=== PATIENT | female | born 1950 | race African-American/Black ===

== ENCOUNTER 2020-05-09 22:46 | Inpatient (IN) | payer MEDICARE, MEDICAID ==
[~2020-05-09] VITALS: Ht 167.6 cm; Wt 36.2 kg
[2020-05-09] MEDS: Albuterol/Ipratropium 3ml neb HHN SCH ×4 (01:01→23:45)
[2020-05-09 22:50] VITALS: BP 129/68
--- NOTE | 2020-05-09 22:50 | NUR ---
ED Nurse Note: pt biba from home CO SOB x 30 minutes. Pt aao x 4, ambulates with steady gait. Pt VSS, RT at bedside for bipap placement. ERMD at bedside. Awaiting further orders.
[2020-05-09] MEDS ORDERED: Nitroglycerin 50mg/250ml btl 250 ML IV SCH (23:00)
--- NOTE | 2020-05-09 23:14 | Diagnostic Imaging Report ---
EXAM: XR Chest, 1 View CLINICAL HISTORY: SOB TECHNIQUE: Frontal view of the chest. COMPARISON: None. FINDINGS: Lungs: The lungs are well aerated. Pleural space: Unremarkable. No pneumothorax. Heart: Cardiomediastinal silhouette unremarkable. Mediastinum: See above. Bones/joints: Osteopenia. Dextro scoliosis of the thoracic spine. Soft tissues: Soft tissues are unremarkable. Vasculature: Atherosclerotic disease of the aortic knob. IMPRESSION: 1. No active disease. 2. Osteopenia.
--- NOTE | 2020-05-09 23:20 | NUR ---
ED Nurse Note: all blood work sent to labs
--- NOTE | 2020-05-09 23:24 | NUR ---
ED Nurse Note: Per ERMD, pt weened from Bipap. Per RT, pt now on venturi mask 4L with 30% FiO2. Pt tolerating well. Spo2 99%. Will continue to monitor.
--- NOTE | 2020-05-09 23:34 | Emergency Room Report ---
History of Present Illness General Chief Complaint: Dyspnea/Respdistress Source: EMS Present Illness HPI 69-year-old female with history of CHF, COPD, spina bifida here in respiratory distress. Paramedics arrived to the patient's home patient was tripoding on the ground in severe respiratory distress. According the paramedics the family and the patient are very poor historians and know nothing else of the patient's past medical history. They said the patient's symptoms started tonight and were not able to give much other history. Paramedics placed the patient on CPAP with a nebulizer treatment and patient says that she feels slightly better but is still in respiratory distress. Says that the shortness of breath started tonight. No fevers, chills, chest pain, palpitations, cough, back pain , abdominal pain, nausea, vomiting, diarrhea, dysuria. 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 Patient History Now: No Nursing Documentation-[facility] Past Medical History: No History, Except For Hx Asthma: Yes Review of Systems All Other Systems: negative except mentioned in HPI Physical Exam Vital Signs Date Time Temp Pulse Resp B/P (MAP) Pulse Ox O2 Delivery O2 Flow Rate FiO2 05/09/20 22:49 98.6 116 30 191/115 (140) 100 Bi-pap 05/09/20 23:24 30 Sp02 EP Interpretation: reviewed, normal General Appearance: alert, GCS 15, non-toxic, severe distress Head: normocephalic, atraumatic Eyes: bilateral eye normal inspection, bilateral eye PERRL ENT: hearing grossly normal, normal pharynx, no angioedema, normal voice Neck: full range of motion, supple/symm/no masses Respiratory: chest non-tender, accessory muscle use, rales, other - In severe respiratory distress. Tachypneic. Use of accessory muscles. On CPAP. Rales in all lung pozo Cardiovascular #1: regular rate, rhythm, no edema Cardiovascular #2: 2+ carotid (R), 2+ carotid (L), 2+ radial (R), 2+ radial (L) , 2+ dorsalis pedis (R), 2+ dorsalis pedis (L) Gastrointestinal: normal bowel sounds, non tender, soft, non-distended, no guarding, no rebound Rectal: deferred Genitourinary: normal inspection, no CVA tenderness Musculoskeletal: back normal, normal range of motion, calf tenderness, gait/ station normal, non-tender Neurologic: alert, motor strength/tone normal, oriented x3, sensory intact, responsive, speech normal Psychiatric: judgement/insight normal, memory normal, mood/affect normal, no suicidal/homicidal ideation Reflexes: 3+ bicep (R), 3+ bicep (L), 3+ tricep (R), 3+ tricep (L), 3+ knee (R) , 3+ knee (L) Lymphatic: no adenopathy Medical Decision Making Diagnostic Impression: Primary Impression: Respiratory distress Additional Impressions: Dyspnea COPD exacerbation ER Course EKG: EKG:, no ischemia, intervals WNL. No ectopy. Tachycardic 120 bpm, normal rhythm Rhythm strip: patient monitored for arrhythmias - no malignant dysrhythmias, runs of PVCs, nor pauses noted Laboratory Tests Test 05/09/20 22:52 05/09/20 22:55 Arterial Blood pH 7.353 (7.350-7.450) Arterial Blood Partial Pressure CO2 50.0 mmHg (35.0-45.0) H Arterial Blood Partial Pressure O2 124.0 mmHg (75.0-100.0) H Arterial Blood HCO3 27.2 mmol/L (22.0-26.0) H Arterial Blood Oxygen Saturation 97.7 % (95-100) Arterial Blood Base Excess 0.9 (-2-2) Barrett Test Positive White Blood Count 4.6 K/UL (4.8-10.8) L Red Blood Count 4.48 M/UL (4.20-5.40) Hemoglobin 15.2 G/DL (12.0-16.0) Hematocrit 44.6 % (37.0-47.0) Mean Corpuscular Volume 100 FL (80-99) H Mean Corpuscular Hemoglobin 33.9 PG (27.0-31.0) H Mean Corpuscular Hemoglobin Concent 34.0 G/DL (32.0-36.0) Red Cell Distribution Width 13.0 % (11.6-14.8) Platelet Count 209 K/UL (150-450) Mean Platelet Volume 6.7 FL (6.5-10.1) Neutrophils (%) (Auto) 47.1 % (45.0-75.0) Lymphocytes (%) (Auto) 29.8 % (20.0-45.0) Monocytes (%) (Auto) 12.2 % (1.0-10.0) H Eosinophils (%) (Auto) 6.6 % (0.0-3.0) H Basophils (%) (Auto) 4.4 % (0.0-2.0) H Sodium Level 142 MMOL/L (136-145) Potassium Level 3.9 MMOL/L (3.5-5.1) Chloride Level 102 MMOL/L (98-107) Carbon Dioxide Level 29 MMOL/L (21-32) Anion Gap 11 mmol/L (5-15) Blood Urea Nitrogen 12 mg/dL (7-18) Creatinine 0.8 MG/DL (0.55-1.30) Estimated Glomerular Filtration Rate > 60 mL/min (>60) Glucose Level 98 MG/DL (74-106) Calcium Level 10.1 MG/DL (8.5-10.1) Total Bilirubin 0.3 MG/DL (0.2-1.0) Aspartate Amino Transferase (AST) 31 U/L (15-37) Alanine Aminotransferase (ALT) 23 U/L (12-78) Alkaline Phosphatase 57 U/L (46-116) Troponin I 0.002 ng/mL (0.000-0.056) Pro-B-Type Natriuretic Peptide 76 pg/mL (0-125) Total Protein 9.2 G/DL (6.4-8.2) H Albumin 4.3 G/DL (3.4-5.0) Globulin 4.9 g/dL Albumin/Globulin Ratio 0.9 (1.0-2.7) L Chest x-ray: No infiltrate/effusion. Mediastinum within normal limits Total critical care time: Approximately 45 minutes Due to a high probability of clinically significant, life threatening deterioration, the patient required the highest level of preparedness to intervene emergently and I personally spent this critical care time directly and personally managing the patient. This critical care time included obtaining a history, examining the patient, pulse oximetry, ordering and reviewing studies , ordering treatments, evaluating response to treatment and updating management plan as needed, frequent reassessment and discussion with other providers as well as arranging for ultimate disposition. This critical to care time was performed to assess and manage the high probability of life-threatening deterioration that could result in multiorgan failure. This critical care time is separate from the separately billable procedures and treating other patients. 69-year-old female with history of spina bifida, COPD, CHF here in respiratory distress. Patient had large amount of rales and wheezing on examination. She was immediately placed on BiPAP on arrival to the emergency department and said that she felt much improved. She had inline nebulizers ongoing, after 1 hour lungs sounded much improved. ABG showed mild CO2 retention, CO2 50. No evidence of respiratory acidosis. Labs largely unremarkable. Negative troponin , negative BNP, normal EKG. Chest x-ray normal. Likely COPD exacerbation. Patient was able to be weaned off of the BiPAP and was doing well on a Venturi mask with DuoNeb. Patient's vital signs remained normal throughout her stay in the emergency department. She had received Solu-Medrol, several hour-long DuoNeb's, Rocephin. She was observed for another several hours on a 4 L Venturi mask and said that she felt much improved. Admitted to telemetry in stable condition. Last Vital Signs Date Time Temp Pulse Resp B/P (MAP) Pulse Ox O2 Delivery O2 Flow Rate FiO2 05/09/20 23:24 92 28 100 30 05/09/20 22:49 98.6 191/115 (140) Bi-pap Scripts Unable to Obtain Active Prescriptions or Reported Meds Referrals: NON PHYSICIAN (PCP) Panfilo Delgado M.D. May 09, 2020 23:34
[2020-05-09 23:47] LABS: BASOPHILS % (AUTO) 4.4 % (0.0-2.0); EOSINOPHILS % (AUTO) 6.6 % (0.0-3.0); HEMATOCRIT 44.6 % (37.0-47.0); HEMOGLOBIN 15.2 G/DL (12.0-16.0); LYMPHOCYTES % (AUTO) 29.8 % (20.0-45.0); MEAN CORPUSCULAR VOLUME 100 FL (80-99); MONOCYTES % (AUTO) 12.2 % (1.0-10.0); NEUTROPHILS % (AUTO) 47.1 % (45.0-75.0); PLATELET COUNT 209 K/UL (150-450); RED BLOOD COUNT 4.48 M/UL (4.20-5.40); WHITE BLOOD COUNT 4.6 K/UL (4.8-10.8)
[2020-05-09 23:56] LABS: ANION GAP 11 mmol/L (5-15); BLOOD UREA NITROGEN 12 mg/dL (7-18); CALCIUM 10.1 MG/DL (8.5-10.1); CARBON DIOXIDE 29 MMOL/L (21-32); CHLORIDE 102 MMOL/L (98-107); CREATININE 0.8 MG/DL (0.55-1.30); POTASSIUM 3.9 MMOL/L (3.5-5.1); SODIUM 142 MMOL/L (136-145)
[2020-05-10] VITALS (8 sets, daily range): BP systolic 120–140; BP diastolic 74–94
[2020-05-10 00:01] LABS: ALANINE AMINOTRANSFERASE 23 U/L (12-78); ALBUMIN 4.3 G/DL (3.4-5.0); ALBUMIN/GLOBULIN RATIO 0.9 (1.0-2.7); ALKALINE PHOSPHATASE 57 U/L (46-116); ASPARTATE AMINO TRANSFERASE 31 U/L (15-37); BILIRUBIN,TOTAL 0.3 MG/DL (0.2-1.0)
[2020-05-10] MEDS: Albuterol/Ipratropium 3ml neb HHN SCH ×6 (00:15→23:16)
--- NOTE | 2020-05-10 00:31 | NUR ---
ED Nurse Note: all medications administered, pt tolerated well no ss of distress noted. will continue to monitor.
[2020-05-10] MEDS ORDERED: cefTRIAXone 1 GM in NS 55 ML IVPB ONE (00:45)
[2020-05-10] MEDS ORDERED: Solu-MEDROL 125mg Inj IVP ONE (00:45)
--- NOTE | 2020-05-10 02:15 | NUR ---
ED Nurse Note: Pt resting in bed, VSS no ss of distress noted. will continue to monitor.
[2020-05-10] MEDS ORDERED: Ketorolac 30mg Inj IV ONE (02:45)
--- NOTE | 2020-05-10 04:01 | NUR ---
ED Nurse Note: Pt resting in bed, VSS no ss of distress noted. will continue to monitor.
[2020-05-10] MEDS ORDERED: Morphine Sulfate 4mg/ml Inj (IV USE ONLY) IVP ONE (04:30)
--- NOTE | 2020-05-10 06:06 | NUR ---
ED Nurse Note: Report given to MARLENE Crowley on telemetry unit.
--- NOTE | 2020-05-10 06:20 | NUR ---
ED Nurse Note: pt resting in bed, VSS no ss of distress noted. will continue to monitor.
--- NOTE | 2020-05-10 06:55 | NUR ---
ER DISCHARGE NOTE: Patient is cleared to be discharged to Telemetry unit per ERMD, pt is aox4, 99% on 4L venturi mask, with stable vital signs. pt was able to verbalize understanding. pt took all belongings. Pt transported to telemetry unit with 1 RN and 1PCA on monitor. Report given to MARLENE Crowley on telemetry unit
--- NOTE | 2020-05-10 07:00 | NUR ---
NURSE NOTES: Patient received from Betzaida ROSARIO. Patient in stable condition. Brought in by fatou and patient was able to ambulate to bed. personnel monitor placed for the patient. Hospital gown provided. Vital signs stable. Bed low and locked. Call light and bedside table within reach. WIll continue and endorse plan of care to incoming shift.
--- NOTE | 2020-05-10 07:38 | NUR ---
NURSE HAND-OFF REPORT: Important Events on Shift:[Admission] Patient Status: [Stable] Diet: [awaiting] Pending Orders: [Admission Orders] Pending Results/Labs:[] Pending MD notification:[] Latest Vital Signs: Temperature 98.6 , Pulse 92 , B/P 125 /94 , Respiratory Rate 16 , O2 SAT 100 , Venturi Mask, O2 Flow Rate 4.0 . Vital Sign Comment: [] EKG Rhythm: Sinus Rhythm Rhythm change?: MD Notified?: - MD Response: Latest Flanagan Fall Score: Fall Risk: Safety Measures: Call light , Bed Alarm , Side Rails , Bed position . Fall Precautions: Report given to [Betzaida ROSARIO].
[2020-05-10] MEDS ORDERED: Zolpidem 5mg tab ORAL PRN (08:45)
--- NOTE | 2020-05-10 10:23 | NUR ---
NURSES NOTE: Received report from MARLENE Mendes. Pt is A/O x 4 and verbally responsive. Pt is on ventri mask 4L with 30% and SATing @95%. Pt has a slight no productive cough. Pt states she has no pain. No SOB or acute distress noted. Pt in bed watching TV and eating breakfast. Bed in lowest position and shown the call light. Pt asked to help remove her braces from her LE and placed on side table. Contacted Dr. Melvi Arnold for admitting orders and awaiting for a callback. Will continue to monitor.
--- NOTE | 2020-05-10 11:38 | NUR ---
CASE MANAGEMENT: INITIAL REVIEW 69YR OLD FEMALE FROM HOME CC:DYSPNEA/RESPIRATORY DISTRESS; SAT TO 90% ON RA; PATIENT FOUND HUNCHED OVER ON FLOOR BY FAMILY SI:RESPIRATORY DISTRESS . DYSPNEA . COPD EXACERBATION . ACUTE CORONARY DISEASE 98.6 116 30 191/115 100% ON BIPAP WBC 4.6 COVID-19 NEGATIVE ABG: pCO2 50 pO2 124 HCO3 27.2 IS:IV NITROGLYCERIN X1 ALBUTEROL HHN Q15MIN IV LASIX X1 IV SOLU-MEDROL 125MG X1 IV ROCEPHIN X1 IV TORADOL X1 IV MORPHINE SULFATE X1 CHEST X-RAY- No active disease. Osteopenia. \: [facility]E [facility]G UN[facility] DCP: HOME WHEN STABLE PLAN: Cont breathing treatments Cont IV abx Cont solumedrol Cont oxygen therapy abg in am CASE MANAGEMENT: REVIEW 05/10/20 SI:RESPIRATORY DISTRESS . DYSPNEA . COPD EXACERBATION . ACUTE CORONARY DISEASE 97.7 103 18 129/91 99% ON VENTURI MASK 4L NO LABS FOR TODAY IS:IV SOUL-MEDROL Q6HR IV ROCEPHIN QD TYLENOL PO Q4HR/PRN ALBUTEROL HHN Q4HR \: 3E MED SURG UNIT DCP: HOME WHEN STABLE PLAN: Cont breathing treatments Cont IV abx Cont solumedrol Cont oxygen therapy ABG in am pt eval and therapy recommendation
[2020-05-10] MEDS: Solu-MEDROL 40mg Inj IVP SCH ×2 (12:05→17:22)
[2020-05-10] MEDS ORDERED: Solu-MEDROL 125mg Inj IVP SCH (12:30)
--- NOTE | 2020-05-10 12:37 | History & Physical ---
History and Physical History & Physicial dictated [id number] Patrice Arnold MD May 10, 2020 12:37
[2020-05-10] MEDS ORDERED: Albuterol/Ipratropium 3ml neb HHN SCH (13:00)
[2020-05-10] MEDS: Morphine Sulfate 2mg/ml Inj(IV/IM USE ONLY) IVP PRN ×2 (14:21→18:56)
--- NOTE | 2020-05-10 15:00 | Consultation ---
DATE OF CONSULTATION: 05/10/2020 PULMONARY CONSULTATION CONSULTING PHYSICIAN: Tyree Bentley MD. HISTORY OF PRESENT ILLNESS: This is a 69-year-old female with history of CHF and COPD as well as spina bifida. She came to the hospital with severe shortness of breath. The patient was active smoker and still smokes. She reports that she has COPD. She also reports recent foot surgery and that she has foot pain. PAST MEDICAL HISTORY: Notable for CHF, COPD, history of spina bifida, previous foot surgery. HOME MEDICATIONS: The patient unable to recall. REVIEW OF SYSTEMS: Denies any headaches, hematemesis, melena, hematochezia, night sweats, or weight loss. PHYSICAL EXAMINATION: VITAL SIGNS: O2 saturation 98% on face mask, blood pressure is 120/70, heart rate , she is afebrile. GENERAL: Reveals a 69-year-old female. HEENT: Unremarkable. CHEST: Shows bilateral rhonchi. ABDOMEN: Soft. EXTREMITIES: There is no edema. LABORATORY AND DIAGNOSTIC DATA: Laboratory testing shows white count 4.6, otherwise normal CBC and BMP. ABG 7.35, pCO2 50, pO2 124. Her COVID-19 rapid gene assay is negative. X-ray chest obtained, which showed osteopenia, hyperaeration. IMPRESSION: 1. Exacerbation of COPD. 2. History of CHF. 3. Active tobacco smoker. 4. Leukopenia. DISCUSSION: Admit to the hospital. I will continue IV steroids. Add Rocephin daily. Breathing treatments. We will follow. Anticipate discharge in the next 24 to 48 hours. Tyree Bentley M.D. DR: PATI JOB#: [id number] CC:
--- NOTE | 2020-05-10 17:00 | History and Physical Report ---
DATE OF ADMISSION: 05/10/2020 CHIEF COMPLAINT: Shortness of breath. HISTORY OF PRESENT ILLNESS: This is a 69-year-old female with history of CHF, COPD, and spina bifida. She came to the emergency room yesterday with shortness of breath. She was also walking outside with crutches and then she fell. She was evaluated in the emergency room, was found to have COPD exacerbation, wheezing, and was admitted. Also on the way put on CPAP, but currently she is not on CPAP and is only on a regular facemask. 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 She received that when she was 19 years old. SOCIAL HISTORY: She still smokes a few cigarettes a day. She used to smoke half a pack a day, but she states she has been cutting back. No history of alcohol abuse. ALLERGIES: Codeine. REVIEW OF SYSTEMS: Noncontributory except above. PHYSICAL EXAMINATION: GENERAL: The patient is a 69-year-old female, some respiratory distress. VITAL SIGNS: Blood pressure 124/86, pulse 75, temperature 97.9, respiratory rate is 18. HEENT: [place] conjunctivae. Anicteric sclerae. NECK: Supple. LUNGS: Diffuse expiratory wheezing. HEART: S1, S2 without murmurs or rubs. ABDOMEN: Soft, nontender. EXTREMITIES: No cyanosis or edema. The patient has atrophy of lower extremities. LABORATORY FINDINGS: The CBC shows WBC of 4600, hematocrit is 44.6, hemoglobin 13.2, platelets 209,000. Chemistry panel shows serum sodium of 142, potassium 3.9, chloride 102, CO2 29, BUN 12, creatinine 0.8, calcium is 10.1, albumin is 4.3. Blood gas yesterday showed a pH of 7.35, pCO2 of 50, pO2 of 124. ASSESSMENT: This is a 69-year-old female with history of CHF, COPD and spina bifida, who is admitted with COPD exacerbation. There may be also some component of CHF. She has CO2 retention. PLAN: The patient was started on bronchodilators, IV steroids, oxygen as needed. Pulmonary consultation will be obtained. The patient will be on empiric antibiotics for possible acute bronchitis. A 2D echo will be obtained to assess the LV function. Diuretics if needed. Labs will be followed and adjustment will be made in the patient's regimen. Patrice Arnold M.D. DR: BRANDO JOB#: [id number] CC:
--- NOTE | 2020-05-10 19:13 | NUR ---
NURSE HAND-OFF REPORT: Important Events on Shift: IV ATB to be started and Resp Txt to be given Patient Status: Full Code and Stable Diet: Regular Mech Soft Pending Orders: Pending Results/Labs: Pending MD notification: Latest Vital Signs: Temperature 97.5 , Pulse 72 , B/P 120 /74 , Respiratory Rate 18 , O2 SAT 97 , Venturi Mask, O2 Flow Rate 4.0 . Vital Sign Comment: EKG Rhythm: Sinus Rhythm Rhythm change?: N MD Notified?: - MD Response: Latest Flanagan Fall Score: 70 Fall Risk: High Risk Safety Measures: Call light Within Reach, Bed Alarm , Side Rails Side Rails x2, Bed position Low and Locked. Fall Precautions: Yellow Socks Yellow Gown Patient Fall Education Report given to Tana.
--- NOTE | 2020-05-10 19:15 | NUR ---
NURSE NOTES: Received patient from MARLENE Montgomery. Patient alert and oriented x4. On venturi mask at 4lpm, saturating well. Complains of pain on the legs, pain medication given prior to endorsement. IV site intact and flushed. Call light placed within reach. Bed in lowest position, brakes engaged. Will continue to monitor.
[2020-05-10] MEDS: cefTRIAXone 1 GM in D5W 55 ML IVPB SCH (21:21)
[2020-05-11] VITALS: BP 135/68
[2020-05-11] MEDS: Morphine Sulfate 4mg/ml Inj (IV USE ONLY) IVP PRN ×5 (01:51→23:12)
[2020-05-11] MEDS: Albuterol/Ipratropium 3ml neb HHN SCH ×6 (03:30→22:56)
[2020-05-11 04:00] VITALS: BP 122/83
[2020-05-11] MEDS: Solu-MEDROL 40mg Inj IVP SCH ×4 (05:55→17:32)
--- NOTE | 2020-05-11 07:42 | NUR ---
NURSE HAND-OFF REPORT: Important Events on Shift:[Episode of ST during the shift. Patient was asymptomatic and was on nebulizer] Patient Status: [FC] Diet: [regular diet] Pending Orders: [] Pending Results/Labs:[] Pending MD notification:[] Latest Vital Signs: Temperature 96.0 , Pulse 111 , B/P 122 /83 , Respiratory Rate 20 , O2 SAT 94 , Venturi Mask, O2 Flow Rate 4.0 . Vital Sign Comment: [] EKG Rhythm: Sinus Tachycardia Rhythm change?: Y MD Notified?: N - MD Response: Latest Flanagan Fall Score: 70 Fall Risk: High Risk Safety Measures: Call light Within Reach, Bed Alarm , Side Rails Side Rails x2, Bed position Low and Locked. Fall Precautions: Yellow Socks Yellow Gown Patient Fall Education Report given to [MARLENE Montgomery].
[2020-05-11 08:00] VITALS: BP 130/83
[2020-05-11 08:07] LABS: CHOLESTEROL 234 MG/DL (< 200); HDL CHOLESTEROL 95 MG/DL (40-60); TRIGLYCERIDES 34 MG/DL (30-150)
--- NOTE | 2020-05-11 08:16 | NUR ---
NURSES NOTE: Received report from MARLENE Fajardo. Pt is A/O x 4 and verbally responsive. Pt is on ventri mask 6L with 35% and SATing @ 97%. No SOB or acute distress. Pt states she has no pain at this time. Pt in bed watching TV and eating breakfast. Bed in lowest position and locked along with showing the call light that was placed next to her. Will continue to monitor.
--- NOTE | 2020-05-11 10:48 | Pulmonology Progress Note ---
Subjective Interval Events: Complaining of cough Constitutional: Reports: no symptoms HEENT: Repors: no symptoms Respiratory: Reports: dry cough Cardiovascular: Reports: no symptoms Gastrointestinal/Abdominal: Reports: no symptoms Genitourinary: Reports: no symptoms Allergies: Coded Allergies: CODEINE (Verified Allergy, Unknown, 05/09/20) Objective Last 24 Hour Vital Signs Date Time Temp Pulse Resp B/P (MAP) Pulse Ox O2 Delivery O2 Flow Rate FiO2 05/11/20 08:52 Venturi Mask 6.0 05/11/20 08:01 94 Venturi Mask 4.0 30 05/11/20 08:01 88 18 98 Venturi Mask 6.0 35 92 18 94 05/11/20 08:00 98.0 87 22 130/83 (99) 94 05/11/20 04:00 111 05/11/20 04:00 96.0 74 20 122/83 (96) 94 05/11/20 03:30 72 21 98 Venturi Mask 4.0 30 72 18 92 05/11/20 02:21 97.9 05/11/20 00:00 77 05/11/20 00:00 97.9 78 19 135/68 (90) 97 05/10/20 23:16 72 18 99 Venturi Mask 4.0 30 74 18 95 05/10/20 21:00 Venturi Mask 4.0 05/10/20 20:01 84 05/10/20 20:00 97.7 86 19 140/76 (97) 96 05/10/20 19:35 75 18 98 Venturi Mask 4.0 30 76 18 93 05/10/20 19:35 94 Venturi Mask 4.0 30 05/10/20 16:25 76 20 99 Venturi Mask 4.0 30 78 20 97 05/10/20 16:00 70 05/10/20 16:00 97.5 72 18 120/74 (89) 97 05/10/20 12:35 94 Venturi Mask 4.0 30 05/10/20 12:32 78 20 99 Venturi Mask 4.0 30 86 22 94 05/10/20 12:00 97.9 75 18 124/86 (99) 97 05/10/20 12:00 75 Intake and Output 05/10/20 05/11/20 19:00 07:00 Intake Total 900 ml 240 ml Output Total 600 ml 1400 ml Balance 300 ml -1160 ml Intake Oral 900 ml 240 ml Output Urine Total 600 ml 1400 ml # Voids 3 6 General Appearance: no acute distress HEENT: normocephalic Respiratory: chest wall non-tender, decreased breath sounds, accessory muscle use Cardiovascular: normal peripheral pulses Abdomen: normal bowel sounds Microbiology Date/Time Source Procedure Growth Status 05/09/20 23:06 Nasopharynx SARS-CoV-2 RdRp Gene Assay - Final Complete Laboratory Tests 05/11/20 04:00: Arterial Blood pH 7.406, Arterial Blood Partial Pressure CO2 42.6, Arterial Blood Partial Pressure O2 76.6, Arterial Blood HCO3 26.2H, Arterial Blood Oxygen Saturation 94.4L, Arterial Blood Base Excess 1.2, Barrett Test Positive 05/11/20 06:00: Hemoglobin A1c 5.4, Magnesium Level 1.8, Triglycerides Level 34, Cholesterol Level 234H, LDL Cholesterol 125H, HDL Cholesterol 95H, Cholesterol/HDL Ratio 2.5L, Thyroid Stimulating Hormone (TSH) 0.391 Current Medications Medications (Trade) Dose Ordered Sig/Claude Route PRN Reason Start Time Stop Time Status Last Admin Dose Admin Acetaminophen (Tylenol) 650 mg Q4H PRN ORAL Mild Pain (Pain Scale 1-3) 05/10/20 08:45 06/09/20 08:44 05/10/20 09:43 Albuterol/ Ipratropium (Albuterol/ Ipratropium) 3 ml Q4HRT HHN 05/10/20 11:00 05/15/20 10:59 05/11/20 08:01 Ceftriaxone Sodium 1 gm/ Dextrose 55 ml @ 110 mls/hr Q24H IVPB 05/10/20 21:00 05/17/20 20:59 05/10/20 21:21 Dextrose (Dextrose 50%) 25 ml Q30M PRN IV Hypoglycemia 05/10/20 08:45 08/08/20 08:44 Dextrose (Dextrose 50%) 50 ml Q30M PRN IV Hypoglycemia 05/10/20 08:45 08/08/20 08:44 Famotidine (Pepcid) 40 mg DAILY ORAL 05/10/20 09:00 08/08/20 08:59 05/11/20 09:11 Methylprednisolone Sodium Succinate (Solu-MEDROL) 40 mg EVERY 6 HOURS IVP 05/10/20 12:00 08/08/20 11:59 05/11/20 05:55 Morphine Sulfate (Morphine Sulfate) 2 mg Q4H PRN IVP Moderate Pain (Pain Scale 4-6) 05/10/20 12:30 05/17/20 12:29 05/10/20 18:56 Morphine Sulfate (Morphine Sulfate) 4 mg Q4H PRN IVP Severe Pain (Pain Scale 7-10) 05/10/20 12:30 05/17/20 12:29 05/11/20 05:57 Ondansetron HCl (Zofran) 4 mg Q6H PRN IVP Nausea & Vomiting 05/10/20 08:45 06/09/20 08:44 Zolpidem Tartrate (Ambien) 5 mg HSPRN PRN ORAL Insomnia 05/10/20 08:45 05/17/20 08:44 Assessment/Plan Assessment/Plan IMPRESSION: 1. Exacerbation of COPD. 2. History of CHF. 3. Active tobacco smoker. 4. Leukopenia. DISCUSSION: Admit to the hospital. I will continue IV steroids. Added Rocephin daily. Breathing treatments. I will follow. Anticipate discharge in the next 24 to 48 hours. Added codiene syrup Johann Hall Omar Syed MD May 11, 2020 10:48
--- NOTE | 2020-05-11 11:35 | General Progress Note ---
Assessment/Plan Problem List: (1) COPD exacerbation ICD Codes: J44.1 - Chronic obstructive pulmonary disease with (acute) exacerbation SNOMED: 174569707 (2) CHF (congestive heart failure) ICD Codes: I50.9 - Heart failure, unspecified SNOMED: 14510830 (3) Spina bifida ICD Codes: Q05.9 - Spina bifida, unspecified SNOMED: 20202329 (4) History of ileal conduit ICD Codes: Z98.890 - Other specified postprocedural states SNOMED: 776948056 Assessment/Plan: Broncho dilators cont Steroids Cough suppressants check Echo start Lipitor Discussed with Dr Bentley Subjective Allergies: Coded Allergies: CODEINE (Verified Allergy, Unknown, 05/09/20) Subjective C/O cough Objective Last 24 Hour Vital Signs Date Time Temp Pulse Resp B/P (MAP) Pulse Ox O2 Delivery O2 Flow Rate FiO2 05/11/20 08:52 Venturi Mask 6.0 05/11/20 08:01 94 Venturi Mask 4.0 30 05/11/20 08:01 88 18 98 Venturi Mask 6.0 35 92 18 94 05/11/20 08:00 98.0 87 22 130/83 (99) 94 05/11/20 04:00 111 05/11/20 04:00 96.0 74 20 122/83 (96) 94 05/11/20 03:30 72 21 98 Venturi Mask 4.0 30 72 18 92 05/11/20 02:21 97.9 05/11/20 00:00 77 05/11/20 00:00 97.9 78 19 135/68 (90) 97 05/10/20 23:16 72 18 99 Venturi Mask 4.0 30 74 18 95 05/10/20 21:00 Venturi Mask 4.0 05/10/20 20:01 84 05/10/20 20:00 97.7 86 19 140/76 (97) 96 05/10/20 19:35 75 18 98 Venturi Mask 4.0 30 76 18 93 05/10/20 19:35 94 Venturi Mask 4.0 30 05/10/20 16:25 76 20 99 Venturi Mask 4.0 30 78 20 97 05/10/20 16:00 70 05/10/20 16:00 97.5 72 18 120/74 (89) 97 8/29/20 12:35 94 Venturi Mask 4.0 30 05/10/20 12:32 78 20 99 Venturi Mask 4.0 30 86 22 94 05/10/20 12:00 97.9 75 18 124/86 (99) 97 05/10/20 12:00 75 Intake and Output 05/10/20 05/11/20 19:00 07:00 Intake Total 900 ml 240 ml Output Total 600 ml 1400 ml Balance 300 ml -1160 ml Intake Oral 900 ml 240 ml Output Urine Total 600 ml 1400 ml # Voids 3 6 Laboratory Tests 05/11/20 04:00: Arterial Blood pH 7.406, Arterial Blood Partial Pressure CO2 42.6, Arterial Blood Partial Pressure O2 76.6, Arterial Blood HCO3 26.2H, Arterial Blood Oxygen Saturation 94.4L, Arterial Blood Base Excess 1.2, Barrett Test Positive 05/11/20 06:00: Hemoglobin A1c 5.4, Magnesium Level 1.8, Triglycerides Level 34, Cholesterol Level 234H, LDL Cholesterol 125H, HDL Cholesterol 95H, Cholesterol/HDL Ratio 2.5L, Thyroid Stimulating Hormone (TSH) 0.391 Height (Feet): 5 Height (Inches): 6.00 Weight (Pounds): 87 Cardiovascular: normal rate Respiratory/Chest: expiratory wheezing Edema: no edema noted Patrice Del Cid MD May 11, 2020 11:35
[2020-05-11 12:00] VITALS: BP 131/81
[2020-05-11 16:00] VITALS: BP 114/75
[2020-05-11] MEDS: guaiFENesin 100mg/5ml Liq ud ORAL PRN ×2 (16:03→20:21)
--- NOTE | 2020-05-11 16:15 | NUR ---
PT Note Attempted to see patient for eval/tx but patient was occupied with other discipline. Will attempt again later if time permits.
[2020-05-11] MEDS ORDERED: Tubing IV Secondary IV ONE (17:12)
[2020-05-11] MEDS ORDERED: NS 275ml ONE (17:12)
--- NOTE | 2020-05-11 17:21 | NUR ---
CASE MANAGEMENT: REVIEW 05/11/20 SI:RESPIRATORY DISTRESS . DYSPNEA . COPD EXACERBATION . ACUTE CORONARY DISEASE 99.3 73 22 114/75 94% ON VENTURI MASK 6L ABG: HCO3 26.2 O2 SAT 94.4 CHOL 234 LDL CHOL 125 HDL 95 IS:IV SOUL-MEDROL Q6HR 40MG IV ROCEPHIN QD TYLENOL PO Q4HR/PRN ALBUTEROL HHN Q4HR ROBITUSSIN Q4HR/PRN \: 3E MED SURG UNIT DCP: HOME WHEN STABLE PLAN: Cont breathing treatments Cont IV abx Cont solumedrol Cont oxygen therapy Chest percussions pt eval and therapy recommendation in am 2D echocardiogram
--- NOTE | 2020-05-11 18:30 | Consultation ---
DATE OF CONSULTATION: 05/11/2020 NOTE: INCOMPLETE DICTATION PULMONARY CONSULTATION Tyree Bentley M.D. DR: KRISTEN JOB#: [id number] CC:
--- NOTE | 2020-05-11 19:09 | NUR ---
NURSE HAND-OFF REPORT: Important Events on Shift: Robitussin syrup given to help break down secretions prior to breathing txt. Pain medications given to tolerate pain. Patient Status: Stable and Full Code Diet: Regular Pending Orders: Pending Results/Labs: Pending MD notification: Latest Vital Signs: Temperature 99.3 , Pulse 77 , B/P 114 /75 , Respiratory Rate 22 , O2 SAT 94 , Venturi Mask, O2 Flow Rate 6.0 . Vital Sign Comment: EKG Rhythm: Sinus Rhythm Rhythm change?: N MD Notified?: N - MD Response: Latest Flanagan Fall Score: 70 Fall Risk: High Risk Safety Measures: Call light Within Reach, Bed Alarm , Side Rails Side Rails x2, Bed position Low and Locked. Fall Precautions: Yellow Socks Yellow Gown Patient Fall Education Report given to Tana.
--- NOTE | 2020-05-11 19:36 | NUR ---
NURSE NOTES: Received patient from MARLENE Montgomery. Alert and oriented, able to verbalize needs. On 6L oxygen per venturi mask, 35% FiO2, saturating well. New medication added: guaifenesin to aid in expectoration. IV site on LFA #22g, intact and flushed. Patient able to independently reposition self in bed. Patient has a urostomy on RLQ, patent and draining well. Bed in lowest position, brakes engaged and bed alarm on. Call light placed within reach. Will continue to monitor.
[2020-05-11 20:00] VITALS: BP 135/87
[2020-05-11] MEDS: cefTRIAXone 1 GM in D5W 55 ML IVPB SCH (20:18)
[2020-05-12] VITALS: BP 116/76
[2020-05-12] MEDS: Solu-MEDROL 40mg Inj IVP SCH ×4 (00:15→17:51)
[2020-05-12] MEDS: guaiFENesin 100mg/5ml Liq ud ORAL PRN ×3 (00:22→15:45)
--- NOTE | 2020-05-12 02:44 | NUR ---
NURSE NOTES: Patient asleep. Still on 6L venturi mask, 35% FiO2, saturating well. Urostomy bag replaced. Call light placed within reach. Will continue to monitor.
[2020-05-12] MEDS: Albuterol/Ipratropium 3ml neb HHN SCH ×6 (03:09→23:09)
[2020-05-12 04:00] VITALS: BP 118/80
[2020-05-12] MEDS: Morphine Sulfate 4mg/ml Inj (IV USE ONLY) IVP PRN ×4 (04:54→17:52)
--- NOTE | 2020-05-12 07:18 | NUR ---
NURSE NOTES: Received report from Tana/RN. Patient is awake having breakfast in bed, she is awake and oriented X4, able to make needs known. On Venturi mask 6L, no distress or SOB noted. IV on left FA 22G SL. Bed in lowest position and locked. Call light within reach, encouraged to use it when need it. Side rails up X3. Will continue plan of care.
--- NOTE | 2020-05-12 07:33 | NUR ---
NURSE HAND-OFF REPORT: Important Events on Shift:[Change of urostomy bag done during the shift. Endorsed another bag similar to what patient has been used to. Still ongoing pain control.] Patient Status: [Full code. stable] Diet: [regular diet] Pending Orders: [] Pending Results/Labs:[] Pending MD notification:[] Latest Vital Signs: Temperature 97.9 , Pulse 93 , B/P 118 /80 , Respiratory Rate 19 , O2 SAT 98 , Venturi Mask, O2 Flow Rate 6.0 . Vital Sign Comment: [] EKG Rhythm: Sinus Rhythm Rhythm change?: N MD Notified?: N - MD Response: Latest Flanagan Fall Score: 70 Fall Risk: High Risk Safety Measures: Call light Within Reach, Bed Alarm , Side Rails Side Rails x2, Bed position Low and Locked. Fall Precautions: Yellow Socks Yellow Gown Patient Fall Education Report given to [Carolina].
[2020-05-12 08:00] VITALS: BP 121/90
--- NOTE | 2020-05-12 09:01 | NUR ---
RD ASSESSMENT & RECOMMENDATIONS SEE CARE ACTIVITY FOR COMPLETE ASSESSMENT DAILY ESTIMATED NEEDS: Needs based on Pulmonary, underweight 38.2kg 30-35 kcals/kg 8453-5650 total kcals 1-1.5 g protein/kg 38-87 g total protein 25-30 mL/kg 955-1146 total fluid mLs NUTRITION DIAGNOSIS: Increased kcal and pro needs r/t underweight status as evidenced by pt is 86% of ideal body weight w/ BMI underweight per guidelines. CURRENT DIET: Regular soft easy chew PO DIET RECOMMENDATIONS: Cardiac diet ADDITIONAL RECOMMENDATIONS: 1) Maintain calibrated bedscale wts 2) Monitor BG w/ solumedrol 3) Add snacks in b/w meals Ensure Enlive qdaily (350 kcal/day)
--- NOTE | 2020-05-12 09:39 | Pulmonology Progress Note ---
Subjective Interval Events: Wheezing this AM; feeling poorly Constitutional: Reports: no symptoms HEENT: Repors: no symptoms Respiratory: Reports: dry cough Cardiovascular: Reports: no symptoms Gastrointestinal/Abdominal: Reports: no symptoms Genitourinary: Reports: no symptoms Allergies: Coded Allergies: CODEINE (Verified Allergy, Unknown, 05/09/20) Objective Last 24 Hour Vital Signs Date Time Temp Pulse Resp B/P (MAP) Pulse Ox O2 Delivery O2 Flow Rate FiO2 05/12/20 07:52 84 20 97 Venturi Mask 6.0 35 85 20 93 05/12/20 07:50 94 Venturi Mask 6.0 35 05/12/20 04:00 80 05/12/20 04:00 97.9 93 19 118/80 (93) 98 05/12/20 03:09 80 18 98 Venturi Mask 6.0 35 82 18 94 05/12/20 00:00 98.1 78 19 116/76 (89) 96 05/12/20 00:00 80 05/11/20 23:06 72 18 98 Venturi Mask 6.0 35 72 18 96 05/11/20 21:00 Venturi Mask 6.0 05/11/20 20:00 99 05/11/20 20:00 97.9 88 18 135/87 (103) 95 05/11/20 19:13 95 Venturi Mask 6.0 35 05/11/20 19:13 81 18 99 Venturi Mask 6.0 35 82 18 95 05/11/20 16:00 73 05/11/20 16:00 99.3 77 22 114/75 (88) 94 05/11/20 15:56 81 18 99 Venturi Mask 6.0 35 78 18 95 05/11/20 12:00 75 05/11/20 12:00 97.9 76 20 131/81 (98) 94 05/11/20 11:47 91 18 98 Venturi Mask 6.0 35 86 18 96 Intake and Output 05/11/20 05/12/20 19:00 07:00 Intake Total 840 ml 265 ml Output Total 1400 ml 350 ml Balance -560 ml -85 ml Intake Oral 840 ml 210 ml IV Total 55 ml Output Urine Total 1400 ml 350 ml # Voids 4 3 General Appearance: no acute distress HEENT: normocephalic Respiratory: chest wall non-tender, accessory muscle use, rhonchi - bilaterally Cardiovascular: normal peripheral pulses Abdomen: normal bowel sounds Microbiology Date/Time Source Procedure Growth Status 05/09/20 23:06 Nasopharynx SARS-CoV-2 RdRp Gene Assay - Final Complete Current Medications Medications (Trade) Dose Ordered Sig/Claude Route PRN Reason Start Time Stop Time Status Last Admin Dose Admin Acetaminophen (Tylenol) 650 mg Q4H PRN ORAL Mild Pain (Pain Scale 1-3) 05/10/20 08:45 06/09/20 08:44 05/10/20 09:43 Albuterol/ Ipratropium (Albuterol/ Ipratropium) 3 ml Q4HRT HHN 05/10/20 11:00 05/15/20 10:59 05/12/20 07:00 Atorvastatin Calcium (Lipitor) 10 mg BEDTIME ORAL 05/11/20 21:00 08/09/20 20:59 05/11/20 20:21 Ceftriaxone Sodium 1 gm/ Dextrose 55 ml @ 110 mls/hr Q24H IVPB 05/10/20 21:00 05/17/20 20:59 05/11/20 20:18 Dextrose (Dextrose 50%) 25 ml Q30M PRN IV Hypoglycemia 05/10/20 08:45 08/08/20 08:44 Dextrose (Dextrose 50%) 50 ml Q30M PRN IV Hypoglycemia 05/10/20 08:45 08/08/20 08:44 Famotidine (Pepcid) 40 mg DAILY ORAL 05/10/20 09:00 08/08/20 08:59 05/12/20 08:49 Guaifenesin (Robitussin) 100 mg Q4H PRN ORAL For Cough 05/11/20 11:42 08/09/20 11:41 05/12/20 00:22 Methylprednisolone Sodium Succinate (Solu-MEDROL) 40 mg EVERY 6 HOURS IVP 05/10/20 12:00 08/08/20 11:59 05/12/20 05:18 Morphine Sulfate (Morphine Sulfate) 2 mg Q4H PRN IVP Moderate Pain (Pain Scale 4-6) 05/10/20 12:30 05/17/20 12:29 05/10/20 18:56 Morphine Sulfate (Morphine Sulfate) 4 mg Q4H PRN IVP Severe Pain (Pain Scale 7-10) 05/10/20 12:30 05/17/20 12:29 05/12/20 09:00 Ondansetron HCl (Zofran) 4 mg Q6H PRN IVP Nausea & Vomiting 05/10/20 08:45 06/09/20 08:44 Zolpidem Tartrate (Ambien) 5 mg HSPRN PRN ORAL Insomnia 05/10/20 08:45 05/17/20 08:44 Assessment/Plan Assessment/Plan IMPRESSION: 1. Exacerbation of COPD. 2. History of CHF. 3. Active tobacco smoker. 4. Leukopenia. DISCUSSION: I will continue IV steroids. Continue\Rocephin daily. Breathing treatments. I will follow. Cannot take codiene due to allergy On Robitussn Will add theoplhylline Johann Hall Omar Syed MD May 12, 2020 09:39
[2020-05-12] MEDS ORDERED: Theophylline ER 100mg ORAL SCH (09:41)
[2020-05-12 12:00] VITALS: BP 130/87
--- NOTE | 2020-05-12 12:12 | NUR ---
CASE MANAGEMENT: REVIEW SI: ACS . COPD EXACERBATION T 97.7 HR 92 RR 22 BP 121/90 SAT 93% VENTURI MASK FIO2 35 IS: CEFTRIAXONE IV Q24HR THEOPHYLLINE PO QD SOLU MEDROL IV Q6HR ALBUTEROL HHN Q4HR TRANSFER TO MED/SURG TODAY TELEMETRY UNIT STATUS DCP: PATIENT IS FROM HOME
--- NOTE | 2020-05-12 14:16 | NUR ---
P.T Note: P.T evaluation completed and tx initiated. Please refer to P.T for full report. Pt is alert, O x 4 , pleasant and cooperative. Pt denied c/o pain but reports feeling weak and exhausted as evidenced by visible SOB upon minimal exertion. Pt saturating 95% at at 6 l/min venturi mask, vitals were stable. Pt currently is independent with bed mobilities , SBA/CGA X 1 for transfers and was able to ambulate and tolerate 10 ft using bilateral crutches, CGA X 1. Pt will benefit from skilled P.T service to increase muscle strength and endurance to increase/achieve mobility independence and safety during hospital stay. Pt may benefit from FWW and home P.T at [facility]. Pt is cleared for OOB activities with nursing assist.
[2020-05-12 16:00] VITALS: BP 138/89
--- NOTE | 2020-05-12 19:10 | NUR ---
NURSE HAND-OFF REPORT: Important Events on Shift:None Patient Status: Stable Diet: Reular diet Pending Orders: Transfer to [facility]-surg Pending Results/Labs: Pending MD notification: Latest Vital Signs: Temperature 98.1 , Pulse 129 , B/P 138 /89 , Respiratory Rate 18 , O2 SAT 95 , Nasal Cannula, O2 Flow Rate 5.0 . Vital Sign Comment: EKG Rhythm: Sinus Tachycardia Rhythm change?: Y MD Notified?: N - MD Response: Latest Flanagan Fall Score: 70 Fall Risk: High Risk Safety Measures: Call light Within Reach, Bed Alarm , Side Rails Side Rails x2, Bed position Low and Locked. Fall Precautions: Yellow Socks Yellow Gown Patient Fall Education Report given to Chepe/MARLENE.
--- NOTE | 2020-05-12 19:10 | NUR ---
NURSE NOTES: Received hand-off report from MARLENE Thibodeaux. Patient alert and oriented x4, able to verbalize needs, breathing even and unlabored, bed alarm on, bed low and locked position, skin clean, dry, intact; nasal cannula on 5L, refused SCDs despite providing education regarding the need for it due to being in bed for longer than normal periods of time and the health consequences that might occur, patient refused anyways. Patient in stable condition.
[2020-05-12 20:00] VITALS: BP 144/93
--- NOTE | 2020-05-12 21:38 | NUR ---
NURSE NOTES: IV needs to be started, patient was given to me without any IV access; a succession of nurses have been trying in the previous shift (Russ Das, [place], RNs). Attempts during this shift have been unsuccessful as well. IV medication rocephin will need to be administered as soon as possible.
--- NOTE | 2020-05-12 22:26 | NUR ---
NURSE NOTES: Called Dr. Bentley regarding respiratory distress exhibited by patient, patient in stable condition. An order to continue with MDI every 4hrs PRN has been given. Noted and will carry out.
--- NOTE | 2020-05-12 23:04 | General Progress Note ---
Assessment/Plan Problem List: (1) COPD exacerbation ICD Codes: J44.1 - Chronic obstructive pulmonary disease with (acute) exacerbation SNOMED: 417217941 (2) Spina bifida ICD Codes: Q05.9 - Spina bifida, unspecified SNOMED: 81918476 (3) History of ileal conduit ICD Codes: Z98.890 - Other specified postprocedural states SNOMED: 487510213 Status Narrative No CHF on Echo Assessment/Plan: Broncho dilators cont Steroids Cough suppressants Discussed with RN Subjective Allergies: Coded Allergies: CODEINE (Verified Allergy, Unknown, 05/09/20) Subjective still SOB Objective Last 24 Hour Vital Signs Date Time Temp Pulse Resp B/P (MAP) Pulse Ox O2 Delivery O2 Flow Rate FiO2 05/12/20 21:00 Nasal Cannula 5.0 05/12/20 20:00 83 05/12/20 20:00 97.9 80 20 144/93 (110) 93 05/12/20 19:37 94 Nasal Cannula 4.0 36 05/12/20 19:35 71 20 98 Nasal Cannula 4.0 36 65 20 94 05/12/20 17:34 Nasal Cannula 5.0 05/12/20 16:00 129 05/12/20 16:00 98.1 88 18 138/89 (105) 95 05/12/20 15:11 84 20 97 Venturi Mask 6.0 35 82 20 95 05/12/20 12:00 82 05/12/20 12:00 97.9 84 20 130/87 (101) 95 05/12/20 11:14 83 20 99 Venturi Mask 6.0 35 81 20 94 05/12/20 09:00 Venturi Mask 6.0 05/12/20 08:00 92 05/12/20 08:00 97.7 78 22 121/90 (100) 97 05/12/20 07:52 84 20 97 Venturi Mask 6.0 35 85 20 93 05/12/20 07:50 94 Venturi Mask 6.0 35 05/12/20 04:00 80 05/12/20 04:00 97.9 93 19 118/80 (93) 98 05/12/20 03:09 80 18 98 Venturi Mask 6.0 35 82 18 94 05/12/20 00:00 98.1 78 19 116/76 (89) 96 05/12/20 00:00 80 05/11/20 23:06 72 18 98 Venturi Mask 6.0 35 72 18 96 Intake and Output 05/11/20 05/12/20 19:00 07:00 Intake Total 840 ml 265 ml Output Total 1400 ml 350 ml Balance -560 ml -85 ml Intake Oral 840 ml 210 ml IV Total 55 ml Output Urine Total 1400 ml 350 ml # Voids 4 3 Height (Feet): 5 Height (Inches): 6.00 Weight (Pounds): 84 Cardiovascular: normal rate Respiratory/Chest: expiratory wheezing Edema: no edema noted Generalized Patrice Arnold MD May 12, 2020 23:04
[2020-05-13] VITALS (7 sets, daily range): BP systolic 118–154; BP diastolic 73–99
[2020-05-13] MEDS: Morphine Sulfate 4mg/ml Inj (IV USE ONLY) IVP PRN ×2 (00:18→05:06)
[2020-05-13] MEDS: Solu-MEDROL 40mg Inj IVP SCH ×5 (00:24→23:10)
[2020-05-13] MEDS: cefTRIAXone 1 GM in D5W 55 ML IVPB SCH (01:19)
[2020-05-13] MEDS: Albuterol/Ipratropium 3ml neb HHN SCH ×6 (03:13→23:08)
--- NOTE | 2020-05-13 06:30 | NUR ---
TRANSFER TO FLOOR: Patient transferred to [facility], per . Report given to RN]. Belongings and medications given to receiving nurse, patient in stable condition, leads and athletic monitor box removed and put in phototypesetting equipment monitor drawer, patient breathing is even and unlabored, IV left forearm 20g patent, flushing well, no redness, no edema, no leaking, no pain, no tenderness noted; alert and oriented x4, able to verbalize needs, patient belongings confirmed in front of patient and receiving nurse.
--- NOTE | 2020-05-13 06:40 | NUR ---
NURSE NOTES: Received from telemetry. Belongings verified at bedside. Noted with cellphone, crutchesx2 and leg braces x2 ,among other belongings. AOx4, urostomy leaking, ordered new urostomy bag from central supply. Oriented to new room and unit, call light provided. Will continue with plan of care.
--- NOTE | 2020-05-13 07:20 | NUR ---
NURSE HAND-OFF: Important Events on Shift:[transfer from [facility], urostomy leaking, ordered new device from central supply] Patient Status: [awake] Diet: [regular] Pending Orders: [] Pending Results/Labs:[] Pending MD notification:[] Latest Vital Signs: Temperature 99.0 , Pulse 90 , B/P 153 /95 , Respiratory Rate 20 , O2 SAT 96 , Nasal Cannula, O2 Flow Rate 5.0 . Vital Sign Comment: [] Latest Flanagan Fall Score: 70 Fall Risk: High Risk Safety Measures: Call light Within Reach, Bed Alarm Zone 1, Side Rails Side Rails x2, Bed position Low and Locked. Fall Precautions: Yellow Socks Yellow Gown Patient Fall Education Report given to [Cathryn RN].
--- NOTE | 2020-05-13 07:25 | NUR ---
NURSE NOTES: Received report from MARLENE Shields. Patient transferred from Tele 05/13. Patient seen awake, alert, and oriented x4. On 5l NC via NC. No s/sx of SOB/Distress, no c/o any pain or gi/gu discomfort. Urostomy bag located on right anterior side, noted to be leaking. Will f/u for replacement urostomy bag. IV site located on right hand 24g, inplace, intact and asymptomatic. Bed placed on lowest and locked position, call light placed within reach and will continue to monitor.
[2020-05-13] MEDS ORDERED: guaiFENesin 100mg/5ml Liq ud ORAL PRN (07:45)
[2020-05-13] MEDS ORDERED: Morphine Sulfate 4mg/ml Inj (IV USE ONLY) IVP PRN (08:30)
[2020-05-13] MEDS: Theophylline ER 100mg ORAL SCH (08:38)
[2020-05-13] MEDS ORDERED: Zolpidem 5mg tab ORAL PRN (08:45)
[2020-05-13] MEDS ORDERED: Theophylline ER 100mg ORAL SCH (09:00)
[2020-05-13] MEDS: Morphine Sulfate 2mg/ml Inj(IV/IM USE ONLY) IVP PRN ×3 (10:44→21:05)
--- NOTE | 2020-05-13 11:23 | Pulmonology Progress Note ---
Subjective Interval Events: Feeling better Constitutional: Reports: no symptoms HEENT: Repors: no symptoms Respiratory: Reports: dry cough Cardiovascular: Reports: no symptoms Gastrointestinal/Abdominal: Reports: no symptoms Genitourinary: Reports: no symptoms Allergies: Coded Allergies: CODEINE (Verified Allergy, Unknown, 05/09/20) Objective Last 24 Hour Vital Signs Date Time Temp Pulse Resp B/P (MAP) Pulse Ox O2 Delivery O2 Flow Rate FiO2 05/13/20 09:59 86 20 97 Nasal Cannula 4.0 36 92 20 95 05/13/20 09:00 Nasal Cannula 5.0 05/13/20 08:00 97.9 88 18 138/91 (107) 94 05/13/20 07:59 94 Nasal Cannula 4.0 36 05/13/20 05:36 99.0 05/13/20 04:00 99.4 90 20 153/95 (114) 96 05/13/20 03:13 89 20 97 Nasal Cannula 4.0 36 86 20 93 05/13/20 00:00 98.0 77 20 130/73 (92) 95 05/12/20 23:09 73 20 98 Nasal Cannula 4.0 36 75 20 96 05/12/20 21:00 Nasal Cannula 5.0 05/12/20 20:00 83 05/12/20 20:00 97.9 80 20 144/93 (110) 93 05/12/20 19:37 94 Nasal Cannula 4.0 36 05/12/20 19:35 71 20 98 Nasal Cannula 4.0 36 65 20 94 05/12/20 17:34 Nasal Cannula 5.0 05/12/20 16:00 129 05/12/20 16:00 98.1 88 18 138/89 (105) 95 05/12/20 15:11 84 20 97 Venturi Mask 6.0 35 82 20 95 05/12/20 12:00 82 05/12/20 12:00 97.9 84 20 130/87 (101) 95 Intake and Output 05/12/20 05/13/20 19:00 07:00 Intake Total 360 ml Output Total 1100 ml 425 ml Balance -740 ml -425 ml Intake Oral 360 ml Output Urine Total 1100 ml 425 ml General Appearance: no acute distress HEENT: normocephalic Respiratory: chest wall non-tender, accessory muscle use, rhonchi - bilaterally Cardiovascular: normal peripheral pulses Abdomen: normal bowel sounds Current Medications Medications (Trade) Dose Ordered Sig/Claude Route PRN Reason Start Time Stop Time Status Last Admin Dose Admin Acetaminophen (Tylenol) 650 mg Q4H PRN ORAL Mild Pain (Pain Scale 1-3) 05/13/20 08:45 06/09/20 08:44 Albuterol/ Ipratropium (Albuterol/ Ipratropium) 3 ml Q4HRT HHN 05/13/20 07:00 05/15/20 10:59 05/13/20 11:19 Atorvastatin Calcium (Lipitor) 10 mg BEDTIME ORAL 05/13/20 21:00 08/09/20 20:59 Ceftriaxone Sodium 1 gm/ Dextrose 55 ml @ 110 mls/hr Q24H IVPB 05/13/20 21:00 05/17/20 20:59 Dextrose (Dextrose 50%) 25 ml Q30M PRN IV Hypoglycemia 05/13/20 06:15 08/08/20 08:44 Dextrose (Dextrose 50%) 50 ml Q30M PRN IV Hypoglycemia 05/13/20 06:15 08/08/20 08:44 Famotidine (Pepcid) 40 mg DAILY ORAL 05/13/20 09:00 08/08/20 08:59 05/13/20 08:38 Guaifenesin (Robitussin) 100 mg Q4H PRN ORAL For Cough 05/13/20 07:45 08/09/20 11:41 Methylprednisolone Sodium Succinate (Solu-MEDROL) 40 mg EVERY 6 HOURS IVP 05/13/20 12:00 08/08/20 11:59 Morphine Sulfate (Morphine Sulfate) 2 mg Q4H PRN IVP Moderate Pain (Pain Scale 4-6) 05/13/20 08:30 05/17/20 12:29 05/13/20 10:44 Morphine Sulfate (Morphine Sulfate) 4 mg Q4H PRN IVP Severe Pain (Pain Scale 7-10) 05/13/20 08:30 05/17/20 12:29 Ondansetron HCl (Zofran) 4 mg Q6H PRN IVP Nausea & Vomiting 05/13/20 08:45 06/09/20 08:44 Theophylline (Ru-Dur) 100 mg DAILY ORAL 05/13/20 09:00 08/11/20 08:59 05/13/20 08:38 Zolpidem Tartrate (Ambien) 5 mg HSPRN PRN ORAL Insomnia 05/13/20 08:45 05/17/20 08:44 Assessment/Plan Assessment/Plan IMPRESSION: 1. Exacerbation of COPD. 2. History of CHF. 3. Active tobacco smoker. 4. Leukopenia. DISCUSSION: I will continue IV steroids. Continue\Rocephin daily. Breathing treatments. I will follow. On nasal O2 On Robitussn On theoplhylline Johann Hall Omar Syed MD May 13, 2020 11:23
--- NOTE | 2020-05-13 14:30 | General Progress Note ---
Assessment/Plan Problem List: (1) COPD exacerbation ICD Codes: J44.1 - Chronic obstructive pulmonary disease with (acute) exacerbation SNOMED: 124453392 (2) Spina bifida ICD Codes: Q05.9 - Spina bifida, unspecified SNOMED: 07991286 (3) History of ileal conduit ICD Codes: Z98.890 - Other specified postprocedural states SNOMED: 654630638 Assessment/Plan: Bronchodilators cont Steroids Cough suppressants Discussed with RN PT Subjective Allergies: Coded Allergies: CODEINE (Verified Allergy, Unknown, 05/09/20) Subjective feels a little better Objective Last 24 Hour Vital Signs Date Time Temp Pulse Resp B/P (MAP) Pulse Ox O2 Delivery O2 Flow Rate FiO2 05/13/20 12:00 98.1 81 20 154/89 (110) 95 05/13/20 11:29 81 20 98 Nasal Cannula 4.0 36 87 20 94 05/13/20 09:59 86 20 97 Nasal Cannula 4.0 36 92 20 95 05/13/20 09:00 Nasal Cannula 5.0 05/13/20 08:00 97.9 88 18 138/91 (107) 94 05/13/20 07:59 94 Nasal Cannula 4.0 36 05/13/20 05:36 99.0 05/13/20 04:00 99.4 90 20 153/95 (114) 96 05/13/20 03:13 89 20 97 Nasal Cannula 4.0 36 86 20 93 05/13/20 00:00 98.0 77 20 130/73 (92) 95 05/12/20 23:09 73 20 98 Nasal Cannula 4.0 36 75 20 96 05/12/20 21:00 Nasal Cannula 5.0 05/12/20 20:00 83 05/12/20 20:00 97.9 80 20 144/93 (110) 93 05/12/20 19:37 94 Nasal Cannula 4.0 36 05/12/20 19:35 71 20 98 Nasal Cannula 4.0 36 65 20 94 05/12/20 17:34 Nasal Cannula 5.0 05/12/20 16:00 129 05/12/20 16:00 98.1 88 18 138/89 (105) 95 05/12/20 15:11 84 20 97 Venturi Mask 6.0 35 82 20 95 Intake and Output 05/12/20 05/13/20 19:00 07:00 Intake Total 360 ml Output Total 1100 ml 425 ml Balance -740 ml -425 ml Intake Oral 360 ml Output Urine Total 1100 ml 425 ml Height (Feet): 5 Height (Inches): 6.00 Weight (Pounds): 86 Cardiovascular: normal rate Respiratory/Chest: expiratory wheezing Edema: no edema noted Generalized Patrice Arnold MD May 13, 2020 14:29
--- NOTE | 2020-05-13 14:48 | NUR ---
CASE MANAGEMENT:REVIEW SI;ACS. COPD EXACERBATION. 99.4 90 20 159/95 63% 4L NC FIO2 @ 36% IS;ROCEPHIN IV Q24 SOLU-MEDROL IV Q6 PEPCID PO QD ROGER-DUR PO QD MORPHINE IV Q4 PRN DUO NEB HHN Q4HRT MED SURG STATUS DCP;FROM HOME
--- NOTE | 2020-05-13 19:27 | NUR ---
NURSE HAND-OFF: Important Events on Shift:n/a Patient Status: stable Diet: reg Pending Orders: n/a Pending Results/Labs:n/a Pending MD notification:n/a Latest Vital Signs: Temperature 98.2 , Pulse 89 , B/P 139 /99 , Respiratory Rate 20 , O2 SAT 94 , Nasal Cannula, O2 Flow Rate 4.0 . Vital Sign Comment: stable Latest Flanagan Fall Score: 70 Fall Risk: High Risk Safety Measures: Call light Within Reach, Bed Alarm Zone 1, Side Rails Side Rails x2, Bed position Low and Locked. Fall Precautions: Yellow Socks Yellow Gown Patient Fall Education Report given to MARLENE Phelan.
--- NOTE | 2020-05-13 19:43 | NUR ---
NURSE NOTES: Patient in bed, awake and alert x4. On nasal cannula 5L. No signs of SOB or distress. Urostomy bag noted on R anterior side. Bag changed today per AM nurse. IV intact and patent. Bed locked and in lowest position. Call light in reach. Will continue to monitor the patient.
[2020-05-13] MEDS ORDERED: cefTRIAXone 1 GM in D5W 55 ML IVPB SCH (21:00)
--- NOTE | 2020-05-13 21:03 | NUR ---
NURSE NOTES: Patient c/o acid reflux. Spoke with Dr. Arnold. New orders received.
[2020-05-14] MEDS: Albuterol/Ipratropium 3ml neb HHN SCH ×6 (03:16→23:14)
[2020-05-14 04:00] VITALS: BP 113/71
[2020-05-14] MEDS: Solu-MEDROL 40mg Inj IVP SCH (05:11)
[2020-05-14] MEDS: Morphine Sulfate 2mg/ml Inj(IV/IM USE ONLY) IVP PRN ×4 (05:12→21:52)
--- NOTE | 2020-05-14 06:14 | NUR ---
NURSE HAND-OFF: Important Events on Shift: No events Patient Status: stable Diet: reg Pending Orders: n/a Pending Results/Labs: CBC, BMP Pending MD notification: n/a Latest Flanagan Fall Score: 70 Fall Risk: High Risk Safety Measures: Call light Within Reach, Bed Alarm Zone 1, Side Rails Side Rails x2, Bed position Low and Locked. Fall Precautions: Yellow Socks Yellow Gown Patient Fall Education Addendum: 05/14/20 at 3726 by JESUS HURT RN Report given to MARLENE Mar
[2020-05-14 06:23] LABS: ANION GAP 7 mmol/L (5-15); BLOOD UREA NITROGEN 18 mg/dL (7-18); CALCIUM 9.3 MG/DL (8.5-10.1); CARBON DIOXIDE 29 MMOL/L (21-32); CHLORIDE 99 MMOL/L (98-107); CREATININE 0.7 MG/DL (0.55-1.30); POTASSIUM 5.3 MMOL/L (3.5-5.1); SODIUM 135 MMOL/L (136-145)
--- NOTE | 2020-05-14 07:43 | NUR ---
NURSE NOTES: Received patient in bed awake. O2 via NC off, replaced back on, regulated to 5L. Complaining of SOB, RT Ximena made aware and will come. IV line intact. HOB elevated. Bed locked in low position. Call light within reach. Will continue plan of care and monitor for SOB.
[2020-05-14 08:00] VITALS: BP 141/91
[2020-05-14] MEDS: Theophylline ER 100mg ORAL SCH (08:20)
[2020-05-14 08:46] LABS: BASOPHILS % (AUTO) 3.3 % (0.0-2.0); HEMATOCRIT 45.3 % (37.0-47.0); HEMOGLOBIN 15.1 G/DL (12.0-16.0); LYMPHOCYTES % (AUTO) 11.4 % (20.0-45.0); MEAN CORPUSCULAR VOLUME 100 FL (80-99); NEUTROPHILS % (AUTO) 78.4 % (45.0-75.0); PLATELET COUNT 232 K/UL (150-450); RED BLOOD COUNT 4.52 M/UL (4.20-5.40); RED CELL DISTRIBUTION WIDTH 12.4 % (11.6-14.8); WHITE BLOOD COUNT 4.9 K/UL (4.8-10.8)
[2020-05-14 12:00] VITALS: BP 143/90
--- NOTE | 2020-05-14 12:05 | Pulmonology Progress Note ---
Subjective Interval Events: Feeling better Constitutional: Reports: no symptoms HEENT: Repors: no symptoms Respiratory: Reports: dry cough Cardiovascular: Reports: no symptoms Gastrointestinal/Abdominal: Reports: no symptoms Genitourinary: Reports: no symptoms Allergies: Coded Allergies: CODEINE (Verified Allergy, Unknown, 05/09/20) Objective Last 24 Hour Vital Signs Date Time Temp Pulse Resp B/P (MAP) Pulse Ox O2 Delivery O2 Flow Rate FiO2 05/14/20 09:00 Nasal Cannula 5.0 05/14/20 08:00 98.4 91 20 141/91 (108) 92 05/14/20 07:48 94 Nasal Cannula 4.0 36 05/14/20 07:48 89 20 98 Nasal Cannula 4.0 36 98 22 94 05/14/20 04:00 98.0 87 18 113/71 (85) 95 05/14/20 03:16 91 20 97 Nasal Cannula 4.0 36 88 20 92 05/13/20 23:13 97.7 88 18 118/75 (89) 97 05/13/20 23:09 104 20 98 Nasal Cannula 4.0 36 101 20 92 05/13/20 20:10 Nasal Cannula 5.0 05/13/20 20:00 98.1 90 18 143/89 (107) 95 05/13/20 18:56 70 20 97 Nasal Cannula 4.0 36 67 20 94 05/13/20 18:55 94 Nasal Cannula 4.0 36 05/13/20 16:00 98.4 102 20 126/77 (93) 98 05/13/20 16:00 98.2 89 20 139/99 (112) 94 05/13/20 14:53 78 20 98 Nasal Cannula 4.0 36 76 20 93 Intake and Output 05/13/20 05/14/20 19:00 07:00 Intake Total 960 ml 480 ml Output Total 450 ml 400 ml Balance 510 ml 80 ml Intake Oral 960 ml 480 ml Output Urine Total 400 ml 400 ml Emesis 50 ml General Appearance: no acute distress HEENT: normocephalic Respiratory: chest wall non-tender, accessory muscle use, rhonchi - bilaterally Cardiovascular: normal peripheral pulses Abdomen: normal bowel sounds Laboratory Tests 05/14/20 05:20: Sodium Level 135L, Potassium Level 5.3H, Chloride Level 99, Carbon Dioxide Level 29, Anion Gap 7, Blood Urea Nitrogen 18, Creatinine 0.7, Estimat Glomerular Filtration Rate > 60, Glucose Level 122H, Calcium Level 9.3 05/14/20 08:05: White Blood Count 4.9, Red Blood Count 4.52, Hemoglobin 15.1, Hematocrit 45.3, Mean Corpuscular Volume 100H, Mean Corpuscular Hemoglobin 33.4H, Mean Corpuscular Hemoglobin Concent 33.3, Red Cell Distribution Width 12.4, Platelet Count 232, Mean Platelet Volume 6.2L, Neutrophils (%) (Auto) 78.4H, Lymphocytes (%) (Auto) 11.4L, Monocytes (%) (Auto) 7.0, Eosinophils (%) (Auto) 0.0, Basophils (%) (Auto) 3.3H Current Medications Medications (Trade) Dose Ordered Sig/Claude Route PRN Reason Start Time Stop Time Status Last Admin Dose Admin Acetaminophen (Tylenol) 650 mg Q4H PRN ORAL Mild Pain (Pain Scale 1-3) 05/13/20 08:45 06/09/20 08:44 05/13/20 17:19 Al Hydroxide/Mg Hydroxide (Mylanta) 30 ml Q4H PRN ORAL Acid Reflux 05/13/20 21:00 06/12/20 20:59 Albuterol/ Ipratropium (Albuterol/ Ipratropium) 3 ml Q4HRT HHN 05/13/20 07:00 05/15/20 10:59 05/14/20 07:47 Atorvastatin Calcium (Lipitor) 10 mg BEDTIME ORAL 05/13/20 21:00 08/09/20 20:59 05/13/20 21:05 Ceftriaxone Sodium 1 gm/ Dextrose 55 ml @ 110 mls/hr Q24H IVPB 05/13/20 21:00 05/17/20 20:59 05/13/20 21:23 Dextrose (Dextrose 50%) 25 ml Q30M PRN IV Hypoglycemia 05/13/20 06:15 08/08/20 08:44 Dextrose (Dextrose 50%) 50 ml Q30M PRN IV Hypoglycemia 05/13/20 06:15 08/08/20 08:44 Famotidine (Pepcid) 40 mg DAILY ORAL 05/13/20 09:00 08/08/20 08:59 05/14/20 08:20 Guaifenesin (Robitussin) 100 mg Q4H PRN ORAL For Cough 05/13/20 07:45 08/09/20 11:41 05/14/20 08:32 Morphine Sulfate (Morphine Sulfate) 2 mg Q4H PRN IVP Moderate Pain (Pain Scale 4-6) 05/13/20 08:30 05/17/20 12:29 05/14/20 09:21 Morphine Sulfate (Morphine Sulfate) 4 mg Q4H PRN IVP Severe Pain (Pain Scale 7-10) 05/13/20 08:30 05/17/20 12:29 Ondansetron HCl (Zofran) 4 mg Q6H PRN IVP Nausea & Vomiting 05/13/20 08:45 06/09/20 08:44 05/13/20 17:36 Pantoprazole (Protonix) 40 mg DAILY ORAL 05/13/20 21:00 06/12/20 20:59 05/14/20 08:20 Prednisone (predniSONE) 20 mg DAILY ORAL 05/14/20 11:00 06/13/20 10:59 Theophylline (Ru-Dur) 100 mg DAILY ORAL 05/13/20 09:00 08/11/20 08:59 05/14/20 08:20 Zolpidem Tartrate (Ambien) 5 mg HSPRN PRN ORAL Insomnia 05/13/20 08:45 05/17/20 08:44 Assessment/Plan Assessment/Plan IMPRESSION: 1. Exacerbation of COPD. 2. History of CHF. 3. Active tobacco smoker. 4. Leukopenia. DISCUSSION: Continue abx VEST therapy Breathing treatments. On nasal O2 On Robitussin On oral steroids On theoplhylline DC planning Johann Hall Omar Syed MD May 14, 2020 12:05
--- NOTE | 2020-05-14 13:40 | NUR ---
NURSE NOTES: IV site leaking and removed. RN attempted to reinsert 3x, vein finder utilized, but failed. Charge nurse attempted 4x with vein finder but failed. Will ask for assistance and attempt again later.
--- NOTE | 2020-05-14 14:02 | NUR ---
CASE MANAGEMENT:REVIEW SI;ACUTE CORONARY SYNDROME. COPD EXACERBATION. 98.4 91 22 143/90 92% 5L NC FIO2 @ 36% NA 135 K+ 5.3 IS;PREDNISONE PO QS ROCEPHIN IV Q24 PROTONIX PO QD PEPCID O QD ROGER-DUR PO QD ROBITUSSIN PO Q4 PRN DUO NEB HHN Q4 HRT MED SURG STATUS DCP;FROM HOME
--- NOTE | 2020-05-14 14:10 | General Progress Note ---
Assessment/Plan Problem List: (1) COPD exacerbation ICD Codes: J44.1 - Chronic obstructive pulmonary disease with (acute) exacerbation SNOMED: 376742337 (2) Spina bifida ICD Codes: Q05.9 - Spina bifida, unspecified SNOMED: 21346534 (3) History of ileal conduit ICD Codes: Z98.890 - Other specified postprocedural states SNOMED: 621758180 Assessment/Plan: Bronchodilators cont Steroids Cough suppressants Discussed with director of casework and Dr Bentley PT Subjective Allergies: Coded Allergies: CODEINE (Verified Allergy, Unknown, 05/09/20) Subjective still SOB Objective Last 24 Hour Vital Signs Date Time Temp Pulse Resp B/P (MAP) Pulse Ox O2 Delivery O2 Flow Rate FiO2 05/14/20 12:21 89 20 99 Nasal Cannula 4.0 36 85 18 95 05/14/20 12:00 98.0 83 20 143/90 (107) 95 05/14/20 09:00 Nasal Cannula 5.0 05/14/20 08:00 98.4 91 20 141/91 (108) 92 05/14/20 07:48 94 Nasal Cannula 4.0 36 05/14/20 07:48 89 20 98 Nasal Cannula 4.0 36 98 22 94 05/14/20 04:00 98.0 87 18 113/71 (85) 95 05/14/20 03:16 91 20 97 Nasal Cannula 4.0 36 88 20 92 05/13/20 23:13 97.7 88 18 118/75 (89) 97 05/13/20 23:09 104 20 98 Nasal Cannula 4.0 36 101 20 92 05/13/20 20:10 Nasal Cannula 5.0 05/13/20 20:00 98.1 90 18 143/89 (107) 95 05/13/20 18:56 70 20 97 Nasal Cannula 4.0 36 67 20 94 05/13/20 18:55 94 Nasal Cannula 4.0 36 05/13/20 16:00 98.4 102 20 126/77 (93) 98 05/13/20 16:00 98.2 89 20 139/99 (112) 94 05/13/20 14:53 78 20 98 Nasal Cannula 4.0 36 76 20 93 Intake and Output 05/13/20 05/14/20 19:00 07:00 Intake Total 960 ml 480 ml Output Total 450 ml 400 ml Balance 510 ml 80 ml Intake Oral 960 ml 480 ml Output Urine Total 400 ml 400 ml Emesis 50 ml Laboratory Tests 05/14/20 05:20: Sodium Level 135L, Potassium Level 5.3H, Chloride Level 99, Carbon Dioxide Level 29, Anion Gap 7, Blood Urea Nitrogen 18, Creatinine 0.7, Estimat Glomerular Filtration Rate > 60, Glucose Level 122H, Calcium Level 9.3 05/14/20 08:05: White Blood Count 4.9, Red Blood Count 4.52, Hemoglobin 15.1, Hematocrit 45.3, Mean Corpuscular Volume 100H, Mean Corpuscular Hemoglobin 33.4H, Mean Corpuscular Hemoglobin Concent 33.3, Red Cell Distribution Width 12.4, Platelet Count 232, Mean Platelet Volume 6.2L, Neutrophils (%) (Auto) 78.4H, Lymphocytes (%) (Auto) 11.4L, Monocytes (%) (Auto) 7.0, Eosinophils (%) (Auto) 0.0, Basophils (%) (Auto) 3.3H Height (Feet): 5 Height (Inches): 6.00 Weight (Pounds): 86 Cardiovascular: normal rate Respiratory/Chest: expiratory wheezing Edema: no edema noted Generalized Patrice Arnold MD May 14, 2020 14:10
--- NOTE | 2020-05-14 15:58 | NUR ---
NURSE NOTES: Patient still has no IV access, Straw Boss Tanja made aware, awaiting assistance. Dr Jackie Arnold made aware, awaiting callback for orders. Explained to patient, verbalized understanding.
[2020-05-14 16:00] VITALS: BP 120/76
[2020-05-14] MEDS ORDERED: Morphine Sulfate 4mg/ml Inj (IV USE ONLY) IVP PRN (16:13)
[2020-05-14] MEDS ORDERED: Morphine Sulfate 2mg/ml Inj(IV/IM USE ONLY) IM PRN (16:15)
--- NOTE | 2020-05-14 17:27 | NUR ---
NURSE NOTES: Last attempts at IV reinsertion made by director of acquisitions using vein finder. Patient still no IV access, agreed to IM radha for morphine. IV antibiotic changed to PO by Dr Arnold.
--- NOTE | 2020-05-14 19:30 | NUR ---
NURSE NOTES: Patient awake in bed, alert and oriented x4. Per patient pain med helps her more when it is given on IV. She wanted to get IV access. Will try. Instructed to use call light for assistance. Call light in reach. Bed in lowest, lock engaged and alarm on. Will continue to monitor.
--- NOTE | 2020-05-14 19:54 | NUR ---
NURSE HAND-OFF: Important Events on Shift:no IV access, meds changed route Patient Status: stable Diet: regular Pending Orders: Pending Results/Labs: Pending MD notification: Latest Vital Signs: Temperature 98.2 , Pulse 95 , B/P 120 /76 , Respiratory Rate 18 , O2 SAT 95 , Nasal Cannula, O2 Flow Rate 5.0 . Vital Sign Comment: Latest Flanagan Fall Score: 70 Fall Risk: High Risk Safety Measures: Call light Within Reach, Bed Alarm Zone 1, Side Rails Side Rails x2, Bed position Low and Locked. Fall Precautions: Yellow Socks Yellow Gown Patient Fall Education Report given to Portia ROSARIO.
[2020-05-14 20:00] VITALS: BP 132/80
--- NOTE | 2020-05-14 21:00 | NUR ---
NURSE NOTES: Attempted to obtained IV access but unsuccessful. Charge nurse made aware.
--- NOTE | 2020-05-14 22:15 | NUR ---
NURSE NOTES: Charge nurse was able to obtain IV access on the left wrist. Pain med given as ordered.
[2020-05-15] VITALS: BP 155/74
[2020-05-15] MEDS: Morphine Sulfate 2mg/ml Inj(IV/IM USE ONLY) IVP PRN ×4 (01:52→19:33)
[2020-05-15] MEDS: Albuterol/Ipratropium 3ml neb HHN SCH ×2 (03:31→08:04)
[2020-05-15 04:00] VITALS: BP 147/84
--- NOTE | 2020-05-15 04:02 | NUR ---
NURSE NOTES: Patient vomited large amount of yellow to black with solid particles. Per patient, she threw up after eating cola and coffee. She also claimed that she ate a sandwich. Zofran was given as ordered.
--- NOTE | 2020-05-15 06:54 | NUR ---
NURSE HAND-OFF: Important Events on Shift:IV insertion, Pain mgt Patient Status: Diet: Regular Pending Orders: Pending Results/Labs: Pending MD notification: Latest Vital Signs: Temperature 97.7 , Pulse 78 , B/P 147 /84 , Respiratory Rate 20 , O2 SAT 93 , Nasal Cannula, O2 Flow Rate 5.0 . Vital Sign Comment: Latest Flanagan Fall Score: 70 Fall Risk: High Risk Safety Measures: Call light Within Reach, Bed Alarm Zone 1, Side Rails Side Rails x2, Bed position Low and Locked. Fall Precautions: Yellow Socks Yellow Gown Patient Fall Education
--- NOTE | 2020-05-15 07:25 | NUR ---
HAND-OFF: Report given to MARLENE Daniel.
--- NOTE | 2020-05-15 07:59 | NUR ---
NURSE NOTES: AM rounds made, pt is alert and awake in bed. respiration is even and unlabored with O2 via NC. pt denies any pain and discomfort. no acute distress noted at this time. will follow plan of care.
[2020-05-15 08:00] VITALS: BP 155/94
[2020-05-15] MEDS: Theophylline ER 100mg ORAL SCH (08:41)
[2020-05-15] MEDS ORDERED: Levofloxacin 500mg tab ORAL SCH (09:00)
--- NOTE | 2020-05-15 10:25 | NUR ---
DISCHARGE PLANNING CALL MADE TO [facility] [phone]. S/W NUBIA WHO CONFIRMED PATIENT IS ACTIVELY ON SERVICE. CURRENT CLINICALS FAXED TO [facility] F: [phone]
--- NOTE | 2020-05-15 10:27 | Pulmonology Progress Note ---
Subjective Interval Events: Feeling better Constitutional: Reports: no symptoms HEENT: Repors: no symptoms Respiratory: Reports: dry cough Cardiovascular: Reports: no symptoms Gastrointestinal/Abdominal: Reports: no symptoms Genitourinary: Reports: no symptoms Allergies: Coded Allergies: CODEINE (Verified Allergy, Unknown, 05/09/20) Objective Last 24 Hour Vital Signs Date Time Temp Pulse Resp B/P (MAP) Pulse Ox O2 Delivery O2 Flow Rate FiO2 05/15/20 09:00 Nasal Cannula 5.0 05/15/20 08:07 99 Nasal Cannula 4.0 36 05/15/20 08:06 88 18 99 Nasal Cannula 4.0 36 85 18 89 05/15/20 08:00 99.3 85 20 155/94 (114) 100 05/15/20 04:00 97.7 78 20 147/84 (105) 93 05/15/20 03:30 77 18 99 Nasal Cannula 4.0 36 73 18 96 05/15/20 00:00 98.0 85 22 155/74 (101) 94 05/14/20 23:17 80 18 99 Nasal Cannula 4.0 36 76 18 94 05/14/20 21:00 Nasal Cannula 5.0 05/14/20 20:04 94 Nasal Cannula 4.0 36 05/14/20 20:00 97.8 86 18 132/80 (97) 99 05/14/20 19:55 86 18 99 Nasal Cannula 4.0 36 84 18 94 05/14/20 16:00 98.2 95 18 120/76 (91) 95 05/14/20 14:23 78 18 99 Nasal Cannula 4.0 36 75 18 95 05/14/20 12:21 89 20 99 Nasal Cannula 4.0 36 85 18 95 05/14/20 12:00 98.0 83 20 143/90 (107) 95 Intake and Output 05/14/20 05/15/20 19:00 07:00 Intake Total 960 ml 240 ml Balance 960 ml 240 ml Intake Oral 960 ml 240 ml General Appearance: no acute distress HEENT: normocephalic Respiratory: chest wall non-tender, accessory muscle use, rhonchi - bilaterally Cardiovascular: normal peripheral pulses Abdomen: normal bowel sounds Current Medications Medications (Trade) Dose Ordered Sig/Claude Route PRN Reason Start Time Stop Time Status Last Admin Dose Admin Acetaminophen (Tylenol) 650 mg Q4H PRN ORAL Mild Pain (Pain Scale 1-3) 05/13/20 08:45 06/09/20 08:44 05/13/20 17:19 Al Hydroxide/Mg Hydroxide (Mylanta) 30 ml Q4H PRN ORAL Acid Reflux 05/13/20 21:00 06/12/20 20:59 Albuterol/ Ipratropium (Albuterol/ Ipratropium) 3 ml Q4HRT HHN 05/13/20 07:00 05/15/20 10:59 05/15/20 08:04 Atorvastatin Calcium (Lipitor) 10 mg BEDTIME ORAL 05/13/20 21:00 08/09/20 20:59 05/14/20 20:30 Dextrose (Dextrose 50%) 25 ml Q30M PRN IV Hypoglycemia 05/13/20 06:15 08/08/20 08:44 Dextrose (Dextrose 50%) 50 ml Q30M PRN IV Hypoglycemia 05/13/20 06:15 08/08/20 08:44 Famotidine (Pepcid) 40 mg DAILY ORAL 05/13/20 09:00 08/08/20 08:59 05/15/20 08:41 Guaifenesin (Robitussin) 100 mg Q4H PRN ORAL For Cough 05/13/20 07:45 08/09/20 11:41 05/14/20 08:32 Levofloxacin (Levaquin) 500 mg DAILY ORAL 05/15/20 09:00 05/22/20 08:59 05/15/20 08:41 Morphine Sulfate (Morphine Sulfate) 2 mg Q4H PRN IVP Moderate Pain (Pain Scale 4-6) 05/13/20 08:30 05/17/20 12:29 05/15/20 10:13 Morphine Sulfate (Morphine Sulfate) 4 mg Q4H PRN IM SEVERE PAIN 05/14/20 16:15 05/21/20 16:14 Ondansetron HCl (Zofran) 4 mg Q6H PRN IVP Nausea & Vomiting 05/13/20 08:45 06/09/20 08:44 05/15/20 03:47 Pantoprazole (Protonix) 40 mg DAILY ORAL 05/13/20 21:00 06/12/20 20:59 05/15/20 08:41 Prednisone (predniSONE) 20 mg DAILY ORAL 05/14/20 11:00 06/13/20 10:59 05/15/20 08:41 Theophylline (Ru-Dur) 100 mg DAILY ORAL 05/13/20 09:00 08/11/20 08:59 05/15/20 08:41 Zolpidem Tartrate (Ambien) 5 mg HSPRN PRN ORAL Insomnia 05/13/20 08:45 05/17/20 08:44 05/14/20 23:47 Assessment/Plan Assessment/Plan IMPRESSION: 1. Exacerbation of COPD. 2. History of CHF. 3. Active tobacco smoker. DISCUSSION: Continue abx VEST therapy Breathing treatments. On nasal O2 On Robitussin On oral steroids On theoplhylline DC planning Johann Hall Omar Syed MD May 15, 2020 10:27
[2020-05-15 12:00] VITALS: BP 135/82
--- NOTE | 2020-05-15 15:15 | NUR ---
NURSE NOTES: Spoke with Dr. Bentley via phone. ordered to d/c pt home. said he would call-in pt's medication tp the pharmacy for pt to take medication home. pt is made aware. verbalized understanding. Addendum: 05/15/20 at 1943 by Fredy Carrasco RN NURSE NOTES: Spoke with Dr. Bentley via phone. ordered to d/c pt home. said he would call-in pt's medication to the pharmacy for take home. pt is made aware. verbalized understanding.
[2020-05-15 16:00] VITALS: BP 149/92
--- NOTE | 2020-05-15 19:39 | NUR ---
NURSE HAND-OFF: Important Events on Shift: AWAITING FAMILY TO MACHINE I CUTTER FOR DISCHARGE Patient Status: ALERT AND AWAKE Diet: REGULAR Pending Orders: Pending Results/Labs: Pending MD notification: Latest Vital Signs: Temperature 97.7 , Pulse 86 , B/P 149 /92 , Respiratory Rate 19 , O2 SAT 94 , Nasal Cannula, O2 Flow Rate 5.0 . Vital Sign Comment: Latest Flanagan Fall Score: 70 Fall Risk: High Risk Safety Measures: Call light Within Reach, Bed Alarm Zone 1, Side Rails Side Rails x2, Bed position Low and Locked. Fall Precautions: Yellow Socks Yellow Gown Patient Fall Education Report given to KAYLENE.
--- NOTE | 2020-05-15 19:53 | NUR ---
NURSE NOTES: RECEIVED PATIENT LYING IN BED,AWAKE, ALERT/ORIENTED X4, VERBALLY RESPONSIVE, DENIES PAIN. NO SIGNS AND SYMPTOMS OF ACUTE CARDIO RESPIRATORY DISTRESS/SHORTNESS OF BREATH. IV DC'D BY RN SECONDARY TO PENDING DISCHARGE. NO COMPLAINTS OF GI DISCOMFORT, NO N/V/D. SIDE RAILS UP X2, BED IN LOWEST POSITION FOR SAFETY, ENCOURAGED PATIENT TO UTILIZE CALL LIGHT FOR ASSISTANCE, VERBALIZED UNDERSTANDING. NAD.
[2020-05-15 20:00] VITALS: BP 143/85
--- NOTE | 2020-05-15 20:52 | NUR ---
NURSE NOTES: DISCHARGED VIA FAMILY VEHICLE, ACCOMPANIED BY [employer], BROTHER IN LAW. IV REMOVED BY AM NURSE, BELONGINGS SIGNED BY PATIENT. DC'D WITH DISCHARGE PACKAGE/CRUTCHES AND MEDICATIONS.
--- NOTE | 2020-05-16 18:29 | NUR ---
INSURANCE ALL CLINICALS AND REVIEWS D/C INSTRUCTION FAXED [facility] PH:[phone] FX:[phone]
== END 2020-05-15 20:50 | disposition home or self-care (01) | DRG 140 ==
LOC: EDBD 22:46 → EMR 23:08 → EDBEDREQSVC 05-10 02:14 → 2E 05-10 05:05 → EDBEDREQ 05-10 05:47 → 2E 05-10 06:12 → 4E 05-13 06:35
DX: J44.1 Chronic obstructive pulmonary disease with (acute) exacerbation (principal); D72.819 Decreased white blood cell count, unspecified; Q05.9 Spina bifida, unspecified; F17.200 Nicotine dependence, unspecified, uncomplicated; Z20.828 Contact with and (suspected) exposure to other viral communicable diseases
CPT/HCPCS: 36415; 36600; 71045; 80048; 80053; 80061; 82803; 83036; 83735; 83880; 84443; 84484; 85025; 93005; 93306; 94640; 96365; 96375; 99285; J2405; J7620; U0002